=== PATIENT | female | born 1980 | race Caucasian/White ===

== ENCOUNTER 2024-03-24 10:13 | Day surgery (SDC) | payer SELFPAY ==
[2024-03-24] VITALS (9 sets, daily range): BP systolic 108–124; BP diastolic 72–92; PULSE 76–90; RESP 14–18; TEMP 36.1–36.7; O2SAT 98–100; BMI 26.1
--- NOTE | 2024-03-24 10:47 | PCM.PRE.AN2 ---
ASA Classification* ASA Classification ASA Classification: 2 Assessment & Plan Anesthesia* Anesthesia Assessment Anesthesia Assessment: Discussed sedation and/or anesthesia options, risks, benefits, and alternatives with patient/parents/legal guardian/POA. Questions invited. The patient/parents/legal guardian/POA seems to understand and agrees to proceed with anesthesia plan. Reviewed the physical assessment, medical history, allergy history and patient home medications list prior to surgery/procedure/anesthetic and documented any changes. Performed airway and anesthesia risk assessments. 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 When Was Last Pacemaker Check QUESTION #4 FULL TEXT: You/Your Family Experience fever (hyperthermia) with Anesthesia Last Oral Intake Last Oral intake: Last Oral Intake NPO since Meds taken in AM with sips of water? 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 Female Yes 03/22/24 09:11 HX of Motion Sickness Yes 03/22/24 09:11 HX of N/V After Surgery No 03/22/24 09:11 Non-Smoker Yes 03/22/24 09:11 Duration of Surgery greater Yes 03/22/24 09:11 than 60 minutes Number of Risk Factors 4 03/22/24 09:11 PONV Score Severe Risk 03/22/24 09:11 Height & Weight Height & Weight: Anesthesia: Height & Weight Height 5 ft 7 in 03/23/24 08:03 Respiratory Assessment Respiratory Assessment - public works laborer: Respiratory Tract Infection Hx - public works laborer Hx Respiratory Tract Infection No 03/22/24 09:11 STOP Sleep Apnea STOP Sleep Apnea - public works laborer: STOP Sleep Apnea - public works laborer Hx Hypertension No 03/22/24 09:11 Hx Sleep Apnea No 03/22/24 09:11 CPAP BIPAP Do you snore loudly (louder No 03/22/24 09:11 than talking or can be heard Do you often feel tired/ No 03/22/24 09:11 fatigued/ sleepy during daytime? Has anyone observed you stop No 03/22/24 09:11 breathing during sleep? STOP Results Negative 03/22/24 09:11 QUESTION #5 FULL TEXT : Do you snore loudly (louder than talking or can be heard through closed doors)? 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 Specify any problems Hx of Preganancy in last 3 No 03/22/24 09:11 Months Nurse Filling Out Transfusion DSCHRIBER 03/22/24 09:11 & Questions: Date: 03/22/24 03/22/24 09:11 Time: 09:12 03/22/24 09:11 Patient unable to answer at this time (ie. confused, unrespo /Reproduction History /Reproductive History - public works laborer: /Reproductive Hx- public works laborer Hx Now No 03/22/24 09:11 Gestational Age (in weeks): EDC: Hx Hx Para Hx Section SAB No 03/22/24 09:11 Active Medications Active Medications: Current Medications Generic Name Dose Route Start Last Admin Trade Name Freq PRN Reason Stop Dose Admin Cefazolin Sodium 2 gm/ Sodium 110 mls @ 150 mls/hr 03/24/24 11:40 Chloride IV 03/24/24 12:23 PREOP ONE Lactated Ringer's 1,000 mls @ 15 mls/hr 03/24/24 10:30 IV .Q48H NACHO Anesthesia Focused Assessment* Airway Assessment Mouth opens: >3 cm Mallampati Score: II Focused Labs Anesthesia Preop lab: CBC CHEMISTRY COAG Urine Test Negative Negative 03/24/24 10:30 Review of Systems (Anesthesia) ROS Narrative System reviewed and no additional complaints, except as documented. [facility] Medical History Varicose vein of leg Wears glasses Wears contact lenses Low iron Non-smoker History of pain when walking Home Medications ?Medication ?Instructions ?Recorded ?Last Taken ?Type antiarthritic combination no.2 900 1,800 mg PO DAILY 03/22/24 03/23/24 History mg tablet (glucosamine-chondroitin) ibuprofen 400 mg tablet (IBU) 400 mg PO Q6H PRN PRN pain 03/22/24 03/23/24 History multivitamin (Daily Multi-Vitamin 1 tab PO DAILY 03/22/24 03/23/24 History tablet) Allergy/AdvReac Type Severity Reaction Status Date / Time Penicillins Allergy Intermediate Rash Verified 03/24/24 10:48 morphine AdvReac Severe Vomiting Verified 03/24/24 10:48 Surgical History Hx of wisdom tooth extraction Hx of appendectomy Hx of arthroscopic knee surgery Hx of left knee surgery Hx of left knee surgery Social History Smoking Status: Never smoker
[2024-03-24] MEDS: Lactated Ringers 1,000 ML 15 ML IV (10:52)
[2024-03-24 10:54] LABS: Internal QC Validated? YES +Cl - CLEAR BKGD; Pregnancy, Urine Negative Negative; Record Kit Lot#,Urine Preg 772476
[2024-03-24] MEDS: Cefazolin 2 GM in 0.9% Normal Saline (100mL Bag) 100 ML IV (11:01)
[2024-03-24] MEDS: Epinephrine (1 mg/ml) 1 MG/ML VIAL (12:00)
--- NOTE | 2024-03-24 12:20 | PRE.ANES_ITS ---
ASA Classification* ASA Classification ASA Classification: 2 Assessment & Plan Anesthesia* Anesthesia Assessment Anesthesia Assessment: Discussed sedation and/or anesthesia options, risks, benefits, and alternatives with patient/parents/legal guardian/POA. Questions invited. The patient/parents/legal guardian/POA seems to understand and agrees to proceed with anesthesia plan. Reviewed the physical assessment, medical history, allergy history and patient home medications list prior to surgery/procedure/anesthetic and documented any changes. Performed airway and anesthesia risk assessments. 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 When Was Last Pacemaker Check QUESTION #4 FULL TEXT: You/Your Family Experience fever (hyperthermia) with Anesthesia Last Oral Intake Last Oral intake: Last Oral Intake NPO since 06:00 03/24/24 10:45 Meds taken in AM with sips of No 03/24/24 10:45 water? Meds patient instructed to take am of surgery PONV PONV - special services coordinator: PONV - special services coordinator Female Yes 03/22/24 09:11 HX of Motion Sickness Yes 03/22/24 09:11 HX of N/V After Surgery No 03/22/24 09:11 Non-Smoker Yes 03/22/24 09:11 Duration of Surgery greater Yes 03/22/24 09:11 than 60 minutes Number of Risk Factors 4 03/22/24 09:11 PONV Score Severe Risk 03/22/24 09:11 Height & Weight Height & Weight: Anesthesia: Height & Weight Height 5 ft 7 in 03/24/24 10:45 Weight: 75.659 kg 03/24/24 10:45 Body Mass Index (BMI) 26.1 03/24/24 10:45 Respiratory Assessment Respiratory Assessment - special services coordinator: Respiratory Tract Infection Hx - special services coordinator Hx Respiratory Tract Infection No 03/22/24 09:11 STOP Sleep Apnea STOP Sleep Apnea - special services coordinator: STOP Sleep Apnea - special services coordinator Hx Hypertension No 03/22/24 09:11 Hx Sleep Apnea No 03/22/24 09:11 CPAP BIPAP Do you snore loudly (louder No 03/22/24 09:11 than talking or can be heard Do you often feel tired/ No 03/22/24 09:11 fatigued/ sleepy during daytime? Has anyone observed you stop No 03/22/24 09:11 breathing during sleep? STOP Results Negative 03/22/24 09:11 QUESTION #5 FULL TEXT : Do you snore loudly (louder than talking or can be heard through closed doors)? 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 Specify any problems Hx of Preganancy in last 3 No 03/22/24 09:11 Months Nurse Filling Out Transfusion DSCHRIBER 03/22/24 09:11 & Questions: Date: 03/22/24 03/22/24 09:11 Time: 09:12 03/22/24 09:11 Patient unable to answer at this time (ie. confused, unrespo /Reproduction History /Reproductive History - special services coordinator: /Reproductive Hx- special services coordinator Hx Now No 03/22/24 09:11 Gestational Age (in weeks): EDC: Hx Hx Para Hx Section SAB No 03/22/24 09:11 Active Medications Active Medications: Current Medications Generic Name Dose Route Start Last Admin Trade Name Freq PRN Reason Stop Dose Admin Cefazolin Sodium 2 gm/ Sodium 110 mls @ 150 mls/hr 03/24/24 11:40 03/24/24 11:20 Chloride IV 03/24/24 12:23 Infused PREOP ONE Infusion Lactated Ringer's 1,000 mls @ 15 mls/hr 03/24/24 10:30 03/24/24 10:52 IV 15 mls/hr .Q48H NACHO Administration Anesthesia Focused Assessment* Temperature: 98.1 F Pulse Rate: 82 Blood Pressure: 123/90 Respiratory Rate: 18 Pulse Ox: 100 Airway Assessment Mouth opens: >3 cm Mallampati Score: II Focused Labs Anesthesia Preop lab: CBC CHEMISTRY COAG Urine Test Negative Negative 03/24/24 10:30 Review of Systems (Anesthesia) ROS Narrative System reviewed and no additional complaints, except as documented. [facility] Medical History Varicose vein of leg Wears glasses Wears contact lenses Low iron Non-smoker History of pain when walking Home Medications ?Medication ?Instructions ?Recorded ?Last Taken ?Type antiarthritic combination no.2 900 1,800 mg PO DAILY 03/22/24 03/23/24 History mg tablet (glucosamine-chondroitin) ibuprofen 400 mg tablet (IBU) 400 mg PO Q6H PRN PRN pain 03/22/24 03/23/24 History multivitamin (Daily Multi-Vitamin 1 tab PO DAILY 03/22/24 03/23/24 History tablet) Allergy/AdvReac Type Severity Reaction Status Date / Time Penicillins Allergy Intermediate Rash Verified 03/24/24 10:48 morphine AdvReac Severe Vomiting Verified 03/24/24 10:48 Surgical History Hx of wisdom tooth extraction Hx of appendectomy Hx of arthroscopic knee surgery Hx of left knee surgery Hx of left knee surgery Social History Smoking Status: Never smoker
[2024-03-24] MEDS: Vancomycin IV 1,000 MG/20 ML Vial 1000 MG OPERA.SITE (12:21)
[2024-03-24] MEDS: Bupiv/Epi 0.25% 30 ML Vial (12:45)
--- NOTE | 2024-03-24 13:15 | PCM.POST.ANE ---
Anesthesia: Postop Eval I Current Vital Signs Temperature: 97.5 F Pulse Rate: 88 Blood Pressure: 111/83 Respiratory Rate: 16 Pulse Ox: 100 Oxygen Delivery Method: Room Air Assessment Airway patent: Yes Spontaneous unlabored respirations: Yes Mental status: Awake and Calm nausea: No Vomiting: No Anesthesia Complication: No Fluid Hydration Crystalloid volume administer (ml): 1,500 Total IV fluid infused: 1,500 Progress Note Anesthesia document: Postop Eval 1 completed: Yes
--- NOTE | 2024-03-24 13:37 | PCM.OPRPT ---
Report of Operation Date of Procedure: 03/24/24 Description of Surgical Findings:: Preoperative diagnosis: 1. Right knee anterior cruciate ligament rupture 2. Right knee complex medial meniscus tear Postoperative diagnosis: 1. Right knee anterior cruciate ligament rupture 2. Right knee complex medial meniscus tear 3. Right knee lateral meniscal root tear Procedure: 1. Right knee arthroscopic anterior cruciate ligament reconstruction with semitendinosis allograft 2. Partial medial meniscectomy right knee 3. Lateral meniscal root repair right knee Primary Surgeon: Alexis Lynch DO Legal Services Professional: Saadia Neri PA-C Anesthesia: General LMA with postoperative femoral nerve block Anesthesiologist: Justin Bunch MD Complications: None apparent Estimated blood loss: 25 cc IV fluids: Per anesthesia record Implants: Arthrex tight rope femoral fixation with ABS button tibial sided fixation, 4.75 mm peek swivel lock anchor Intraoperative findings: Complete ACL rupture Complex tearing medial posterior horn with horizontal and radial component Radial lateral meniscal root tear Preoperative indications: This is an otherwise healthy 43-year-old female who sustained a right knee anterior cruciate ligament injury approximately 1 month ago. Complex tear of the medial meniscal posterior horn was also seen on MRI. Of note, patient has had 2 ACL reconstructions performed on her left knee and has had a bone patellar tendon bone harvest of her right knee for her revision surgery on the left knee. I saw the patient in consultation. She attempted rehab but had persistent instability and limited range of motion. I recommend surgical invention in the form of right knee arthroscopic anterior cruciate ligament reconstruction with allograft, medial meniscal repair versus partial medial meniscectomy. The risks, benefits, alternatives to the procedure was reviewed with the patient at length. Risks included but were not limited to bleeding, wound complications, infection, loss of life or limb, need for additional surgery, continued instability, persistent pain, posttraumatic arthritis, stiffness, difficulty returning to sport, risk of anesthesia, DVT or PE, neurovascular injury. Patient expressed understanding of these risks and wished to proceed with surgery. Informed consent obtained in the office. Description of procedure: Patient was identified in preoperative holding area by name, medical record number, and date of . The operative extremity was marked. Informed consent confirmed with the patient. All questions were answered to patient satisfaction. At time of her procedure, patient was brought to the operative suite and positioned supine on a standard operating table. All bony prominences were well-padded. General anesthesia was induced and laryngeal mask airway placed. After securing the tube, I placed a well-padded pneumatic tourniquet on the upper thigh of the operative extremity. I first examined the leg under anesthesia. There was a positive pivot shift and Iban. We then positioned the operative extremity in a circumferential arthroscopic leg bradley. A well-leg bradley was placed on the patient's nonoperative thigh. We then dropped the foot of the bed 90 degrees. We then prepped and draped the operative lower extremity in a normal, sterile orthopedic fashion. We performed a timeout with all parties in attendance in agreement with the side, site, operation to be performed. No concerns were voiced and we elected to proceed with surgery. 2 g Ancef was administered for antibiotic prophylaxis prior to the incision by the anesthesia staff. I commenced diagnostic and operative arthroscopy. I establish a standard anterolateral portal with an 15 blade scalpel. Blunt tipped trocar and cannula was inserted through this portal as the knee was brought into full extension into the patellofemoral joint. Trocar was removed and arthroscope introduced. Examination of the knee revealed pristine patellofemoral compartment. Medial and lateral gutters were unremarkable. Medial compartment was entered with a valgus stress. Anterior medial portal was established with assistance of a spinal needle and subsequent 15 blade scalpel. Medial meniscus tearing was noted. Shredded inner third meniscus was debrided with a radial resector from the mid body to the posterior horn. Tearing of the posterior horn was noted to the mid body in a horizontal fashion. This did not appear to traverse to the capsule. I then performed a partial medial meniscectomy removing the inner third of this horizontal component. There was a radial component at the mid posterior horn. I attempted to place [id number] sutures across the radial tear but due to poor tissue quality sutures achieved no purchase. I elected to proceed with limited debridement of the radial tear with completion of our partial medial meniscectomy. I then turned my attention to the intercondylar notch. The remnants of the ACL were then encountered. ACL was removed with arthroscopic shaver. I then performed a notchplasty in standard fashion with a 5.5 mm bur. Lateral compartment was entered with a [id number] stress. A radial tear at the lateral meniscal root was noted. I proceeded with fixation of the lateral meniscal root tear with 2 fiber link sutures with a meniscal scorpion in the posterior horn. Sutures were retrieved out a superior lateral portal. During meniscal repair, my executive assistant to general counsel Saadia Neri PA-C prepared the allograft on the back table with final diameters of 9.5 mm for femoral and tibial sided fixation with a internal brace utilizing tight rope fixation. I then introduced the flip cutter drill guide through the anterior lateral portal and the camera was moved to the anterior medial portal. I positioned the drill guide to allow for 2 mm of back wall at approximately the 10:30 position on the lateral wall of the notch. I made a stab incision along the lateral thigh in line with the planned trajectory of the flip cutter. Skin, subcutaneous tissue, and IT band were sharply incised and dilated. Drill guide and drill were then passed down to the level of the lateral femoral cortex. We drilled through the lateral cortex into the intercondylar notch at the planned trajectory location. The flip cutter was then deployed to a diameter of 9.5 mm. The flip cutter was then used to retrograde drill the femoral socket to a depth of 30 mm. Flip cutter was then retracted and pulled from the wound. A fiber stick was then introduced through the femoral socket. The fiber wire was then retrieved out the anterior lateral portal and luggage tagged. Loose pieces of bone was debrided with a radial resector from the knee. I then switched the camera to the lateral portal. I placed the tibial drill guide through the anterior medial portal planning be tunnel placement at the inaja footprint of the ACL. I sharply incised the skin with an 11 blade scalpel through skin and subcutaneous tissues over the anterior medial tibia with planned trajectory of the drill course. I then drilled through the anterior medial tibia into the joint at the planned trajectory. I deployed the flip cutter to a diameter of 9.5 mm and drilled retrograde fashion for the tibial socket, approximately 30 mm in length. Flip cutter was brought back to 3.5 mm and retrieved out the tibial tunnel. We then used passing sutures to pass the femoral side of the graft through the femoral tunnel. The tight rope button was then deployed and engaged the lateral femoral cortex. We then sequentially tightened the graft to dock into the femoral tunnel. Tibial sided passing suture was used to shuttle the tibial side of the graft with internal brace as well as the 2 lateral meniscal repair sutures through the tibial tunnel for a single tibial tunnel repair technique. The tight rope was passed then through a ABS button and sequentially tightened with the knee in approximately 30 degrees of flexion. I then independently tightened the internal brace with the lateral meniscal repair sutures. These were passed through the eyelet of a swivel lock anchor. I drilled unit cortically in the anterior medial tibial shaft for swivel lock anchor. This was approximately 1 cm distal to our tibial tunnel exit. Suture anchor was placed with excellent cortical purchase. Sutures were probed and tension appeared appropriate. We then retensioned the femoral side. The knee was cycled 25 times to prevent creep. The graft was probed and fixation and tension was excellent. Sutures were then cut. The knee was thoroughly debrided lavage of any loose pieces of bone. Final images were obtained. Tourniquet was then deflated. Hemostasis was excellent. Portal sites and tunnel incisions were closed with interrupted [id number] 4-0 nylon suture. A sterile compression dressing was applied. Patient was placed in a T ROM brace locked in full extension. Patient tolerated procedure well without apparent complication. She was safely awoken the operative suite and extubated. She was transferred to his [facility] insufflated PACU in stable condition. Need for skilled executive assistant to general counsel: Saadia Neri PA-C was critical to the outcome of the case. During the course of the procedure he played a vital role. She was pivotal and proceeding with surgical procedure during time of graft preparation allowing for less time under anesthesia, less tourniquet time, ultimately reducing risk for the patient. He also played a vital role in closure and brace application. Postoperative plan: Weightbearing as tolerated with hinged knee brace locked in full extension. Range of motion 0 to 90 degrees when nonweightbearing. Plan for nonweightbearing for 6 weeks to the operative extremity. Aspirin 81 mg twice daily for DVT prophylaxis starting postoperative day #1. Prescription for oxycodone provided. Plan for 3 days of oral Toradol for pain relief. Scheduled Tylenol. Ice and elevation. Physical therapy to start early next week as previously scheduled. Follow-up in 2 weeks for suture removal.
--- NOTE | 2024-03-24 13:50 | POSTOPAN2_ITS ---
Anesthesia Postop Eval I Sum Postop Eval Completion status Anesthesia document: Postop Eval 1 completed: Yes Anesthesia Postop Eval I Summary Anesthesia Postop Eval I Summary: Anesthesia Postop Eval I: Assessment Summary Airway patent Yes 03/24/24 13:31 [email or web address] Spontaneous unlabored Yes 03/24/24 13:31 [email or web address] respirations Mental status Awake,Calm 03/24/24 13:31 [email or web address] nausea No 03/24/24 13:31 [email or web address] Vomiting No 03/24/24 13:31 [email or web address] Anesthesia Postop Eval I: Fluid Summary Crystalloid volume administer 1,500 03/24/24 13:31 [email or web address] (ml) Colloids volume administered ( ml) Blood Product volume administered (ml) Total IV fluid infused 1,500 03/24/24 13:31 [email or web address] Anesthesia Postop Eval I: Summary Notes Anesthesia Complication No 03/24/24 13:31 [email or web address] Anesthesia Complication Comment: Post-operative progress note Anesthesia: Postop Eval II Evaluation Mental status: Awake Pain Level: 0 nausea: No Vomiting: No Complications Anesthesia Complication: No
--- NOTE | 2024-03-24 13:50 | PCM.POSTANE2 ---
Anesthesia Postop Eval I Sum Postop Eval Completion status Anesthesia document: Postop Eval 1 completed: Yes Anesthesia Postop Eval I Summary Anesthesia Postop Eval I Summary: Anesthesia Postop Eval I: Assessment Summary Airway patent Yes 03/24/24 13:31 [email or web address] Spontaneous unlabored Yes 03/24/24 13:31 [email or web address] [email or web address] respirations Mental status Awake,Calm 03/24/24 13:31 [email or web address] [email or web address] nausea No 03/24/24 13:31 [email or web address] [email or web address] Vomiting No 03/24/24 13:31 [email or web address] [email or web address] Anesthesia Postop Eval I: Fluid Summary Crystalloid volume administer 1,500 03/24/24 13:31 [email or web address] (ml) Colloids volume administered ( ml) Blood Product volume administered (ml) Total IV fluid infused 1,500 03/24/24 13:31 [email or web address] Anesthesia Postop Eval I: Summary Notes Anesthesia Complication No 03/24/24 13:31 [email or web address] Anesthesia Complication Comment: Post-operative progress note Anesthesia: Postop Eval II Evaluation Mental status: Awake Pain Level: 0 nausea: No Vomiting: No Complications Anesthesia Complication: No
[2024-03-24] MEDS: oxyCODONE 5 MG Tablet 10 MG PO (14:29)
== END 2024-03-24 15:31 | disposition home or self-care (01) ==
LOC: SDC 10:16 → AC 10:20
PROVIDERS: Anesthesiology; PCP Nurse Practitioner Adult Health; Referring Provider Student in an Organized Health Care Education/Training Program; Visit Provider Student in an Organized Health Care Education/Training Program
PROC: (CPT 29888; principal; 2024-03-24 11:25)
DX: S83.231A Complex tear of medial meniscus, current injury, right knee, initial encounter (principal); S83.281A Other tear of lateral meniscus, current injury, right knee, initial encounter; S83.511A Sprain of anterior cruciate ligament of right knee, initial encounter; W19.XXXA Unspecified fall, initial encounter
CPT/HCPCS: 29888; 29881; 64447; 81025; J7120; J2405